=== PATIENT | male | born 1945 | race Caucasian/White ===

== ENCOUNTER → 2016-06-26 | Outpatient (CLI) | payer MEDICARE ==
--- NOTE | 2016-06-26 17:17 | DI ---
EXAM: CT LUMBAR SPINE W/O CONTRAST COMPARISON: None available. HISTORY: ITS.REASON: M54.5 LBP . TECHNIQUE: Axial images obtained through the thoracic spine and reconstructed in sagittal and coronal reformations. FINDINGS: The lumbar vertebral bodies are well aligned. Vertebral body heights are well-maintained. There is disc space narrowing and endplate sclerosis and posterior bony ridging at L3-4 and L4-5 and mild disc space narrowing and posterior bony ridging at L5-S1. Schmorl's node formation is seen at the inferior endplate of L2. Sagittal images through the neural foramina, shows neural foraminal narrowing particularly noted that L4-5 and L3-4 which may affect bilateral L4 nerve roots in the right L3 nerve root. Axial images obtained at L5-S1 shows bilateral facet hypertrophic changes. There is mild disc bulge and posterior bony ridging with convex mass effect on the anterior sac containing mild to moderate spinal canal stenosis. At L4-5, disc bulge and posterior bony ridging and ligamentum flavum hypertrophy contributes to moderate to marked spinal canal stenosis. At L3-4, disc bulge and ligamentum flavum hypertrophy and facet hypertrophic changes contributes to moderate spinal canal stenosis. At L2-3, disc bulge and ligamentum flavum hypertrophy contributes to moderate spinal canal stenosis. At L1-2, there is mild spinal canal narrowing from disc bulge flattening the anterior thecal sac and ligamentum flavum hypertrophy. At T12-L1, no significant spinal canal stenosis. At T11-12, no significant spinal canal stenosis. There may be a rounded hypodense structure which may be emanating off the right kidney anteriorly which may represent a large right renal cyst. IMPRESSION: 1. Moderate to marked spinal canal stenosis at L4-5 from disc bulge, posterior bony ridging, ligament hypertrophy and facet hypertrophic change. 2. Moderate spinal canal stenosis at L2-3 and L3-4 from disc bulge, ligamentum flavum hypertrophy, and facet hypertrophic change. 3. Neural foraminal narrowing at L3-4 and L4-5 which may affect the respective nerve roots as described above. LOCATION OF DICTATION: [facility] .
== END ==
LOC: IMA 10:09
PROVIDERS: ATTEND Family Medicine
DX: M48.06 Spinal stenosis, lumbar region (principal); M54.5 Low back pain

== ENCOUNTER → 2016-07-03 | Outpatient (CLI) | payer MEDICARE ==
--- NOTE | 2016-07-04 10:51 | DI ---
INDICATION: ITS.REASON: R07.1 Chest pain on breathing PROCEDURE: CHEST 2-VIEWS UPRIGHT (PA \T\ LAT) Encounter: Initial COMPARISON: None FINDINGS: The lungs are clear without evidence of focal abnormal airspace opacity. There is no pleural effusion or pneumothorax. Poststernotomy changes are present. The heart size, mediastinal contours and pulmonary vascularity are within normal limits. Cervical spine fusion hardware. IMPRESSION: No acute cardiopulmonary disease. .
== END ==
LOC: IMA 16:08
PROVIDERS: ATTEND Internal Medicine Pulmonary Disease
DX: R07.1 Chest pain on breathing (principal); Z98.1 Arthrodesis status; Z98.890 Other specified postprocedural states

== ENCOUNTER 2016-07-11 12:35 | Emergency (ER) | payer MEDICARE ==
[~2016-07-11] VITALS: Ht 185.4 cm; Wt 88.0 kg
[2016-07-11 12:38] VITALS: TEMP 98.6; Ht 185.4 cm; Wt 88.0 kg
--- OUTSIDE RECORDS SUMMARY | 2016-07-11 12:39 | XMS REPORT | Summary of Care ---
Author Author Prince MILNER, Lucia Organization Unknown Address [address] [place], [place] [id number] Phone Unavailable Care Team Providers Care Butt Maker Name Role Phone Cedric Stevens M.D. Unavailable Unavailable Moises Mazariegos Unavailable Unavailable Functional Status Name Dates Details Functional status health issues are not documented Status: Name Dates Details Cognitive status health issues are not documented Status: Problems Name Dates Details Prostate pain (602.8, N42.81) Status: Active Arthritis (716.90, M19.90) Status: Active Rectal pain (569.42, K62.89) Status: Active Malignant neoplasm of prostate (185, C61) Status: Active Slow urinary stream (788.62, R39.198) Status: Active Medications Name Dates Details Atorvastatin Calcium 20 MG Oral Tablet TAKE 1 TABLET DAILY DIRECTED. * Start 25-Jun-2016 Active Coreg 6.25 MG Oral Tablet TAKE 1 TABLET TWICE DAILY WITH MEALS. * Refills: 0 * Start 25-Jun-2016 Active Flomax 0.4 MG Oral Capsule take one tablet at bedtime * Refills: 0 * Start 25-Jun-2016 Active Ambien 10 MG Oral Tablet TAKE 1 TABLET AT BEDTIME. * Refills: 0 * Start 25-Jun-2016 Active MetFORMIN HCl - 500 MG Oral Tablet TAKE 1 TABLET DAILY. * Refills: 0 * Start 25-Jun-2016 Active Lisinopril 5 MG Oral Tablet TAKE 1 TABLET DAILY. * Refills: 0 * Start 25-Jun-2016 Active Omeprazole 20 MG Oral Capsule Delayed Release TAKE 1 CAPSULE TWICE DAILY. * Refills: 0 * Start 25-Jun-2016 Active Percocet 10-325 MG Oral Tablet TAKE 1 TABLET EVERY 6 HOURS NEEDED FOR PAIN. * Refills: 0 * Start 25-Jun-2016 Active Oxybutynin Chloride 5 MG Oral Tablet take 1 tablet 2 times daily * Quantity: 180 Refills: 0 * Start 25-Jun-2016 Active Nitrostat 0.4 MG Sublingual Tablet Sublingual DISSOLVE 1 TABLET UNDER THE TONGUE NEEDED FOR CHEST PAIN. * Refills: 0 * Start 25-Jun-2016 Active Turmeric 500 MG Oral Capsule * Refills: 0 * Start 25-Jun-2016 Active MiraLax Oral Powder MIX 1 CAPFUL (17GM) IN 8 OUNCES OF WATER, JUICE, OR TEA AND DRINK DAILY. * Refills: 0 * Start 25-Jun-2016 Active Fish Oil 1000 MG Oral Capsule * Refills: 0 * Start 25-Jun-2016 Active Allergies and Adverse Reactions Name Dates Details Penicillins (Allergy) Status: Active Past Medical History Name Dates Details History of actinic keratosis (V13.3, Z87.2) Status: Resolved History of Ankle fracture, left (824.8, S82.892A) Status: Resolved History of Chronic back pain (724.5, M54.9) Status: Resolved History of Chronic headache (784.0, R51) Status: Resolved History of Chronic hip pain (719.45, M25.559) Status: Resolved History of Chronic insomnia (780.52, F51.04) Status: Resolved History of Chronic knee pain (719.46, M25.569) Status: Resolved History of Chronic neck pain (723.1, M54.2) Status: Resolved History of fracture of pelvis (V15.51, Z87.81) Status: Resolved History of migraine (V12.49, Z86.69) Status: Resolved History of radiation therapy (V15.3, Z92.3) Status: Resolved History of type 2 diabetes mellitus (V12.29, Z86.39) Status: Resolved Procedures Procedure Dates Details History of Tonsillectomy History of Knee Surgery Right History of Hip Surgery Right History of Arthrodesis Cervical History of Septoplasty History of Eye Surgery History of CABG History of Hernia Repair History of Transurethral Resection Of Prostate (TURP) History of Nose Surgery History of Hernia Repair Revision Of Abdominal Mesh Procedures not documented Immunization Name Dates Details Immunizations not documented Family History Name Dates Details Family history of Colon cancer (153.9, C18.9) Status: Active Family history of malignant neoplasm of brain (V16.8, Z80.8) Status: Active Name Dates Details Family history of malignant neoplasm of prostate (V16.42, Z80.42) Status: Active Social History Name Dates Details - Status: Name Dates Details Former smoker Vital Signs Date Test Result Details 25-Jun-2016 15:40 BP Systolic 103 mm[Hg] Status: Comments: Location: ; Position: BP Diastolic 75 mm[Hg] Status: Comments: Location: ; Position: Heart Rate 60 /min Status: Comments: Location: ; Height 73 in Status: Weight 200 lb Status: Body Mass Index Calculated 26.39 kg/m2 Status: Body Surface Area Calculated 2.15 m2 Status: Results Date Description Value Details Results not documented Plan of Care Name Dates Details Planned Observations Planned Goals not documented Instructions Name Dates Details Instructions not documented Encounters Appointment; Cedric Stevens M.D. Encounter Diagnosis: Problem not documented On 25-Jun-2016 15:30
--- OUTSIDE RECORDS SUMMARY | 2016-07-11 12:39 | XMS REPORT ---
Author Author Rogerio Lee Organization [employer] Address Unknown Phone Unavailable Care Team Providers Care Applied Computer Science Professor Name Role Phone Rogerio Lee CP Unavailable Allergies No Known Allergies Problems Problem Type Condition Code Onset Dates Condition Status Problem Coronary artery disease I25.10 Active Problem Hypertension I10 Active Problem Dyspnea R06.00 Active Problem Dyslipidemia E78.5 Active Problem S/P CABG (coronary artery bypass graft) Z95.1 Active Medications Medication Code System Code Instructions Start Date End Date Status Dosage Nitroglycerin [facility] [address]-42 0.4 MG Sublingual q5min as need for cp, max 3/15 min, call 911 if cp persist Oct 30, 2015 1 tablet under the tongue Results No Known Results Summary Purpose [employer] Submission
--- NOTE | 2016-07-11 12:44 | ERPDOC ---
Departure Disposition Decision Date: July 11, 2016 Disposition Decision Time: 12:54 (HARITHA TREVINO APRN) Disposition: 01 DISCHARGED HOME, SELF-CARE Impression Impression (HARITHA TREVINO APRN) Impression: Primary Impression: Pharyngitis Pharyngitis/tonsillitis etiology: streptococcus Qualified Codes: J02.0 - Streptococcal pharyngitis Additional Impression: Gingivitis Condition: Stable Seen By: Mid-level only (HARITHA TREVINO APRN) Referrals: Franklin LOOMIS MD (Family) Patient Instructions: Gingivitis (ED), Pharyngitis (ED), Strep Throat (ED) Problems/Meds/Labs Reviewed?: Yes Medications reviewed and manag: Yes (HARITHA TREVINO APRN) Additional Instructions: Your throat exam is consistent with a strep infection. Take clindamycin 300mg every 8 hours for 10 days, complete all even if your symptoms begin to improve. This antibiotic should improved your gingivitis. Follow with your PCP/dentist for re-evaluation. You may take OTC ibuprofen or Tylenol for pain. Follow treatment plan. Follow up care ordered?: Yes Mental Status: Alert, Oriented (HARITHA TREVINO APRN) Scripts Clindamycin HCl (Clindamycin HCl) 300 Mg Capsule 1 CAP PO TID for 10 Days, #30 CAP TAKE WITH A FULL GLASS OF WATER TO AVOID ESOPHAGEAL IRRITATION. Prov: HARITHA TREVINO APRN 07/11/16 HPI General Chief Complaint: Throat Pain/Injury Stated Complaint: SORE THROAT Time Seen by Provider: 12:44 Source: patient (HARITHA TREVINO APRN) Time Seen by Provider: 12:44 (POPPY JARAMILLO DO) HPI Dental Initial Comments 70 YO male presents to ED with 2 day hx. of sore throat. Says it is difficult and painful to swallow. Patient also report having bleeding gums "for some time ". Hx. of poor dentition. Denies fever, chills, sick contacts or trauma to throat. (HARITHA TREVINO APRN) Allergies: Coded Allergies: Penicillins (Verified Allergy, Unknown, 07/11/16) Past History Past Medical History Metabolic: cancer (prostate) Cardiac: CAD Neurological: migraines Musculoskeletal: back pain, neck pain, osteoarthritis (HARITHA TREVINO APRN) Surgical History General: hernia, neck, tonsils Cardiac: cardiac bypass Reproductive/: other (urethral reconstruction) Joint: knee, other (ankle), shoulder (HARITHA TREVINO HAND PACKER) Family History Family PMH: FOUND: other (Noncontributory) (HARITHA TREVINO HAND PACKER) Social History Smoking Status: Former smoker Current Occupational Status: retired (HARITHA TREVINO HAND PACKER) Review of Systems Constitutional Constitutional: DENIES: chills, dizziness, fever, weakness (HARITHA TREVINO HAND PACKER) Eyes General: DENIES: erythema, exudate Lids/Accessories: DENIES: erythema, swelling (HARITHA TREVINO HAND PACKER) ENMT Ears: DENIES: pain Hearing: hearing loss Sinuses: DENIES: congestion, rhinorrhea Mouth/Throat: change in swallowing, painful swallowing, sore throat, DENIES: change in voice Teeth: missing teeth, other (bleeding gums) (ISAAK TREVINOS A HAND PACKER) Cardiovascular Cardiac: DENIES: chest pain, murmur Rhythm/Rate: DENIES: palpitations (HARITHA TREVINO HAND PACKER) Pulmonary Respiratory: DENIES: cough, dyspnea (ISAAK TREVINOS A HAND PACKER) GI Upper Abdomen: DENIES: nausea, pain, vomiting Lower Abdomen: DENIES: diarrhea, pain (ISAAK TREVINOS A HAND PACKER) General: DENIES: dysuria, pain (ISAAK TREVINOS A HAND PACKER) Musculoskeletal General: DENIES: joint pain, pain, tenderness (ISAAK TREVINOS A HAND PACKER) Integumentary Skin: DENIES: color change, itching, rash (ISAAK TREVINOS A HAND PACKER) Neurological General: DENIES: ataxia, change in strength, numbness, paralysis/paresis, weakness (ISAAK TREVINOS A HAND PACKER) Psychiatric Psychiatric: DENIES: anxiety, depression, nervousness (ISAAK TREVINOS A HAND PACKER) Exam General General Nourishment: well nourished, well developed, no acute distress, adult General Body Habitus: disheveled (ISAAK TREVINOS A HAND PACKER) [employer] Dental Face: NOT FOUND: asymmetry, bruising, erythema, swelling, tender, weakness Jaw: NOT FOUND: asymmetry Gums: moist, swelling, NOT FOUND: pink (red) Teeth: caries, fractures, missing Pharynx: cobblestoning, erythema, exudate, swelling (of uvula), NOT FOUND: uvular deviation Tonsils: NOT FOUND: other (patient does not have tonsils) Neck: NOT FOUND: L anterior adenopathy, L posterior adenopathy, R anterior adenopathy, R posterior adenopathy, shotty nodes (HARITHA TREVINO APRN) Eyes (brief) Eyes Brief: found: EOMI, PERRL (HARITHA TREVINO APRN) ENMT (brief) ENMT: NOT FOUND: nasal exudate, nasal swelling (HARITHA TREVINO APRN) Neck (brief) Neck Brief: FOUND: trachea midline (HARITHA TREVINO APRN) Respiratory (brief) Respiratory Brief: FOUND: clear all [place], equal bilaterally, symmetrical ( HARITHA TREVINO APRN) Cardiovascular (brief) Cardiac Brief: FOUND: regular rate, regular rhythm (HARITHA TREVINO APRN) Musculoskeletal (brief) Musculoskeletal Brief: NOT FOUND: deformity, loss of motion (HARITHA TREVINO APRN) Integumentary (brief) Integumentary Brief: FOUND: dry, pink, warm (HARITHA TREVINO APRN) Neurologic (brief) Neurological Brief: FOUND: CN w/o gross def to obs, motor-no gross deficits, sensory-no gross deficits (HARITHA TREVINO APRN) Neurologic RN Documented GCS Eye Opening: Verbal: Motor: Total: (HARITHA TREVINO APRN) Psychiatric (brief) Psychiatric Brief: FOUND: normal affect (HARITHA TREVINO APRN) Differential Diagnoses Considering: Gingival Abscess, Retropharyngeal Abscess, Caries, Gingivitis, Pharyngitis Strep, Sinusitis (HARITHA TREVINO APRN) Progress Progress Progress I discussed exam findings with patient and that he does have swelling of his uvula. Exam findings consistent with strep pharyngitis and gingivitis. I suggested using a steroid to help reduce inflammation of uvula which patient declines (say "I don't do steroids, I won't sleep for a week"). Patient has penicillin allergy, so will start patient on clindamycin which will cover strep and gingivitis. Patient verbalized understanding of treatment plan, follow-up with PCP and dentist and return precautions. (HARITHA TREVINO APRN) HARITHA TREVINO APRN July 11, 2016 12:44 POPPY JARAMILLO DO July 11, 2016 14:04
[2016-07-11] MEDS ORDERED: CLIN300C86 PO (12:56)
[2016-07-11] MEDS ORDERED: OXYC1TAB72 PO (13:06)
[2016-07-11] MEDS ORDERED: OXYB5TAB10 PO (13:06)
[2016-07-11] MEDS ORDERED: HYDR4TAB84 PO (13:06)
[2016-07-11] MEDS ORDERED: NITR0.4T SL (13:06)
[2016-07-11] MEDS ORDERED: TAMS0.4C47 PO (13:06)
[2016-07-11] MEDS ORDERED: CARV6.252 PO (13:08)
[2016-07-11] MEDS ORDERED: ATOR20TA59 PO (13:08)
[2016-07-11] MEDS ORDERED: LISI-625 PO (13:08)
[2016-07-11] MEDS ORDERED: OMEP40CA52 PO (13:08)
[2016-07-11] MEDS ORDERED: ASPI-557 PO (13:09)
[2016-07-11] MEDS ORDERED: TRAZ150T80 PO (13:09)
[2016-07-11] MEDS ORDERED: METF500T7 PO (13:09)
[2016-07-11] MEDS ORDERED: [UNRECOGNIZED DRUG - CODE] PO (13:12)
[2016-07-11] MEDS ORDERED: TURM500C7 PO (13:12)
[2016-07-11] MEDS ORDERED: VIT1CAPS5 PO (13:12)
[2016-07-11] MEDS ORDERED: FISH1CAP51 PO (13:12)
--- NOTE | 2016-07-11 13:40 | NUR ---
DISMISSAL NOTE DISMISSAL INSTRUCTIONS GIVEN TO PT. AND NO FURTHER QUESTIONS. RX FOR CLINDAMYCIN GIVEN TO PT. PT. IN A HURRY TO LEAVE BECAUSE HE STATES HE IS STARTING TO GET A MIGRAINE.
[2016-07-11 14:11] VITALS: BP 135/80; PULSE 62; RESP 18; O2SAT 95
== END 2016-07-11 13:40 | disposition home or self-care (01) ==
LOC: ED 12:35
DX: J02.0 Streptococcal pharyngitis (principal); K05.10 Chronic gingivitis, plaque induced; Z87.891 Personal history of nicotine dependence